=== PATIENT | male | born 1960 | race Caucasian/White ===

== ENCOUNTER 2018-05-09 06:04 | Emergency (ER) | payer MEDICAID, MEDICARE, OTHER ==
[~2018-05-09] VITALS: Ht 180.3 cm; Wt 116.7 kg
--- NOTE | 2018-05-09 06:30 | NUR ---
pa at bedside
[2018-05-09] MEDS ORDERED: ASPIRIN 81 MG TABLET CHEW ONE (06:56)
[2018-05-09] MEDS ORDERED: DILTIAZEM 5 MG/ML, 10ML ONE (06:56)
--- NOTE | 2018-05-09 06:59 | NUR ---
BEDSIDE REPORT FROM GAYATRI AMADOR, PT RESTING IN [facility]. PT NEEDS IV ACCESS AND MEDICATIONS. MICHELLE. MYNOR
[2018-05-09] MEDS ORDERED: SODIUM CHLORIDE FLUSH 10ML SYR IVF ONE (07:00)
[2018-05-09] MEDS ORDERED: DILTIAZEM 5 MG/ML, 5ML IVPush ONE (07:00)
[2018-05-09] MEDS ORDERED: ASPIRIN 81 MG TABLET CHEW PO ONE (07:00)
[2018-05-09 07:07] LABS: BASOPHILS # (AUTO) 0.03 x10^3/uL (0-0.1); BASOPHILS % (AUTO) 1 % (0-1); EOSINOPHILS # (AUTO) 0.49 x10^3/uL (0-0.4); EOSINOPHILS % (AUTO) 9 % (1-7); LYMPHOCYTES # (AUTO) 1.68 x10^3/uL (1-3.4); LYMPHOCYTES % (AUTO) 30 % (22-44); MD NO; MEAN CORPUSCULAR HEMOGLOBIN 32.2 pg (27.5-34.5); MEAN CORPUSCULAR HGB CONC 33.1 g/dL (33.2-36.2); MEAN CORPUSCULAR VOLUME 97.1 fL (81-97); MEAN PLATELET VOLUME 7.5 fL (7.4-10.4); MONOCYTES # (AUTO) 0.52 x10^3/uL (0.2-0.8); MONOCYTES % (AUTO) 9 % (2-9); NEUTROPHILS # (AUTO) 2.88 x10^3/uL (1.8-6.8); NEUTROPHILS % (AUTO) 52 % (42-75); PLATELET COUNT 283 x10^3/uL (130-400); RED BLOOD COUNT 4.24 x10^6/uL (4.38-5.82); RED CELL DISTRIBUTION WIDTH 15.5 % (9.4-14.8)
[2018-05-09 07:15] LABS: INTERNATIONAL NORMALIZED RATIO 1.05 (0.93-1.1)
[2018-05-09 07:18] LABS: ALBUMIN 3.1 g/dL (3.4-5.0); ANION GAP 9 mmol/L (5-15); CALCIUM 8.4 mg/dL (8.5-10.1); CHLORIDE 112 mmol/L (98-107)
[2018-05-09 07:24] LABS: ALANINE AMINOTRANSFERASE 31 U/L (12-78); ALKALINE PHOSPHATASE 79 U/L (45-117); BILIRUBIN,TOTAL 0.2 mg/dL (0.2-1.0); CREATININE 0.75 mg/dL (0.7-1.3); TOTAL PROTEIN 6.8 g/dL (6.4-8.2); TROPONIN I < 0.015 ng/mL (0.000-0.045)
[2018-05-09] MEDS ORDERED: WARFARIN 5 MG TABLET PO-COUM ONE (08:00)
[2018-05-09] MEDS ORDERED: DILTIAZEM 60 MG TABLET PO ONE (08:00)
[2018-05-09] MEDS ORDERED: Enoxaparin 1 mg/kg protocol SQ ONE (08:00)
--- NOTE | 2018-05-09 08:00 | NUR ---
PT SLEEPING IN GURNEY, EQUAL CHEST RISE AND FALL. HR IN 80'S AFTER DILTIAZEM IV. MORE MEDICATIONS ORDERED AND REQUESTED FROM [facility]. CALL LIGHT WITHIN REACH, PT PROVIDED WITH BLANKET
[2018-05-09] MEDS ORDERED: DILTIAZEM 60 MG TABLET ONE (08:28)
[2018-05-09] MEDS ORDERED: ENOXAPARIN 120MG/0.8ML SQ ONE (08:30)
--- NOTE | 2018-05-09 09:04 | NUR ---
PT RESTING IN [facility], GIVEN MEDICATIONS. VSS, NAD. CALL LIGHT WITHIN REACH. PT UP FOR RECHECK
[2018-05-09 09:05] VITALS: BP 110/62
== END 2018-05-09 09:43 | disposition home or self-care (01) ==
LOC: ED 08:48
DX: I48.2 Chronic atrial fibrillation (principal); I10 Essential (primary) hypertension; Z88.0 Allergy status to penicillin; Z88.1 Allergy status to other antibiotic agents
CPT/HCPCS: 36415; 71045; 80053; 83735; 83880; 84484; 85025; 85610; 93005; 96372; 99284; J1650

== ENCOUNTER 2018-05-09 20:04 | Emergency (ER) | payer MEDICAID, MEDICARE ==
[~2018-05-09] VITALS: Ht 172.7 cm; Wt 79.5 kg
[2018-05-09 22:45] LABS: TROPONIN I < 0.015 ng/mL (0.000-0.045)
[2018-05-09] MEDS ORDERED: METOPROLOL TARTRATE 25 MG TABLET PO ONE (23:00)
--- NOTE | 2018-05-09 23:11 | NUR ---
TASK RN: ATTEMPTED TO HAVE PT PERFORM BREATHALYZER X 3 TIMES. PT UNABLE TO DO SO. ERP NOTIFIED
--- NOTE | 2018-05-09 23:30 | NUR ---
PT VERY DROWSY AND UNABLE TO FOLLOW DIRECTIONS. PT MOSTLY SOMULENT
[2018-05-10] MEDS ORDERED: METOPROLOL 1 MG/ML, 5ML IVPush PRN
[2018-05-10] MEDS ORDERED: METOPROLOL TARTRATE 25 MG TABLET PO ONE
[2018-05-10] MEDS ORDERED: METOPROLOL 1 MG/ML, 5ML ONE ×3 (00:07→04:34)
--- NOTE | 2018-05-10 00:45 | NUR ---
IV STARTED, PT MEDICATED WITH ORDERED MEDS FOR ELEVATED HR. PT BP READING LOW, SEE CHARTED. ERP INFORMED, OKAY TO GIVEN MED FOR HR AND CONTINUE TO MONITOR BP.
--- NOTE | 2018-05-10 03:42 | NUR ---
PT MORE ALERT AT THIS TIME. PT UNABLE TO BALANCE WELL ENOUGH TO AMBULATE. PT HR ELEVATED TO 140s. ERP AWARE, PT MEDICATED PER EMAR. BREATHYLIZER DONE, SEE CHARTED. WILL ATTEMPT TO AMBULATE PT AGAIN. PT ABLE TO VOID WITH URINAL. PT NOW ON RA SATING 94%. WILL CONTINUE TO MONITOR.
[2018-05-10] MEDS ORDERED: METOPROLOL 1 MG/ML, 5ML IVPush ONE ×2 (04:00→05:00)
[2018-05-10 04:03] LABS: TROPONIN I < 0.015 ng/mL (0.000-0.045)
--- NOTE | 2018-05-10 04:10 | NUR ---
ATTEMPTED TO AMBULATE PT AGAIN. PT ABLE TO AMBULATE ABOUT 7 STEPS WITH TWO PERSON ASSIST. PT STATED HE FELT DIZZY AND WAS UNABLE TO WALK FURTHER. PT BACK IN [facility]. BILATE BEDRAILS UP.
[2018-05-10] MEDS ORDERED: METOPROLOL TARTRATE 25 MG TABLET ONE (04:29)
[2018-05-10 05:08] VITALS: BP 114/80
--- NOTE | 2018-05-10 05:10 | NUR ---
PT ABLE TO DRESS HIMSELF. PT GIVEN COMMUNITY RESOURCE LIST AND EXPLAINATION OF DC INSTRUCTIONS WELL MED ASSIST RESOURCES. PT ABLE TO DRESS HIMSELF, TRANSFER FROM BED TO WHEELCHAIR STEADILY. PT ABLE TO GET INTO TAXI WITH, TAXI VOUCHER, STEADILY.
== END 2018-05-10 05:09 | disposition home or self-care (01) ==
LOC: ED 22:06
DX: I48.2 Chronic atrial fibrillation (principal); G92 Toxic encephalopathy; F10.129 Alcohol abuse with intoxication, unspecified; Z59.0 Homelessness; Y90.9 Presence of alcohol in blood, level not specified
CPT/HCPCS: 36415; 80307; 84484; 93005; 96374; 96376